=== PATIENT | male | born 1960 | race American Indian/Alaskan Native ===

== ENCOUNTER 2017-09-19 12:40 | Outpatient (CLI) | payer BC ==
--- NOTE | 2017-09-19 13:58 | XRay Report ---
RIGHT FOOT, 3 views: History: Left foot pain. The bony architecture is intact. Bony alignment is normal. No soft tissue abnormalities are seen. The joint spaces appear preserved. IMPRESSION: Unremarkable right foot.
== END 2017-09-19 12:41 | disposition home or self-care (01) ==
LOC: SPVIMAG 12:40
PROVIDERS: ATTEND Internal Medicine
DX: M79.671 Pain in right foot (principal)